=== PATIENT | female | born 1990 | race Caucasian/White ===

== ENCOUNTER → 2016-07-18 | Outpatient (CLI) | payer OTHER ==
--- NOTE | 2016-07-19 13:38 | REP ---
MRI right ankle without contrast: History: Soft tissue swelling. Right ankle pain, status post injury. Injury in January 2016. No comparison radiographs. Technique: Sagittal, axial and coronal imaging planes are utilized. T1, proton density and T2-weighted scans were obtained with and without fat saturation. MRI findings: There is a bone island in the distal fibula. There is another bone island in the medial aspect of the talus. Cortical and medullary bone signal intensity are otherwise normal. The plantar fascia is smooth. Achilles tendon does show some central increased signal intensity in the distal tendon. There is no swelling. This may reflect distal Achilles tendonitis. There is extra-articular soft tissue edema anteromedially adjacent to the distal tibia consistent with soft tissue contusion and edema versus fibrosis. No abnormal fluid collection is seen. There is some skin thickening and subdermal soft tissue edema at the top of the imaging field of view in the distal calf medially. Anterior talofibular and posterior talofibular ligaments appear intact. The anterior inferior tibiofibular and the posterior inferior tibiofibular ligaments have an intact appearance. Medially, the components of the deltoid ligament appear intact. The calcaneal fibular ligament has a normal appearance. The tibialis posterior tendon, flexor digitorum, and flexor hallucis longus tendons appear intact medially. Laterally, peroneus, longus and brevis tendons are intact in appearance. There is no evidence of osteochondral defect lesion in the tibial plafond or talar dome. There is no evidence of tarsal coalition. The sinus tarsi is unremarkable. Impression: Mild increased signal intensity, but without swelling in the distal Achilles tendon. May reflect Achilles tendinosis or tendonitis. Subcutaneous soft tissue changes in the extra-articular soft tissues of the medial aspect just above the ankle and in the distal calf, incompletely imaged with the ankle field of view. No other significant abnormality. Signed by Danilo Cisneros MD 07/20/2016 10:17 A
== END ==
LOC: M RAD 11:11
PROVIDERS: ATTEND Family Medicine
DX: S99.911A Unspecified injury of right ankle, initial encounter (principal); X58.XXXA Exposure to other specified factors, initial encounter; Y92.89 Other specified places as the place of occurrence of the external cause; Y93.89 Activity, other specified; Y99.8 Other external cause status

== ENCOUNTER → 2016-08-25 | Outpatient (REF) | payer OTHER | LOC: M SFHCLERA 11:16 | PROVIDERS: ATTEND Physician Assistant | DX: R30.0 Dysuria (principal) ==